=== PATIENT | female | born 1960 | race Caucasian/White ===

== ENCOUNTER 2017-09-18 13:17 | Inpatient (IN) | payer MEDICAID ==
[~2017-09-18] VITALS: Ht 152.4 cm; Wt 97.7 kg
[~2017-09-18 13:17] MED LIST: ATOR10TA PO; AZIT250T PO; CLON-527 PO; CLON-529 PO; ESCI20TA29 PO; ESOM40CA30 PO; LAMO100T2 PO; LISI-604 PO; PALI6TAB3 PO; ROPI1TAB17 PO
[2017-09-18] MEDS ORDERED: dexamethasone sod phosphate 10mg/ml inj IV STA (13:28)
[2017-09-18] MEDS ORDERED: albuterol 2.5 MG/3 ML nebule CONTNEB PRN (13:30)
[2017-09-18 13:49] LABS: BASOPHILS # (AUTO) 0.1 X10'3 (0-0.2); BASOPHILS % (AUTO) 0.8 % (0-1); EOSINOPHILS # (AUTO) 0.2 X10'3 (0-0.9); EOSINOPHILS % (AUTO) 2.2 % (0-6); HEMATOCRIT 44.7 % (35.0-45.0); LYMPHOCYTES # (AUTO) 1.3 X10'3 (1.1-4.8); LYMPHOCYTES % (AUTO) 16.2 % (21-51); MEAN CORPUSCULAR HEMOGLOBIN 31.4 PG (27.0-31.0); MEAN CORPUSCULAR HGB CONC 33.5 % (33.0-36.5); MEAN CORPUSCULAR VOLUME 93.9 FL (78-98); MEAN PLATELET VOLUME 8.9 FL (7.4-10.4); MONOCYTES # (AUTO) 0.4 X10'3 (0-0.9); MONOCYTES % (AUTO) 4.8 % (2-12); NEUTROPHILS # (AUTO) 5.9 X10'3 (1.8-7.7); PLATELET COUNT 162 X10'3 (140-440); RED BLOOD COUNT 4.76 X10'6 (4.20-5.60); RED CELL DISTRIBUTION WIDTH 15.3 % (11.5-14.5); WHITE BLOOD COUNT 7.7 X10'3 (4.5-11.0)
[2017-09-18 14:12] LABS: ALANINE AMINOTRANSFERASE 68 U/L (12-78); ALBUMIN 3.1 G/DL (3.4-5.0); ALBUMIN/GLOBULIN RATIO 0.8 (1.1-1.5); ALKALINE PHOSPHATASE 125 IU/L (46-116); ANION GAP 10 (8-16); ASPARTATE AMINO TRANSFERASE 33 U/L (10-37); BILIRUBIN,TOTAL 0.3 MG/DL (0.1-1.0); BLOOD UREA NITROGEN 9 MG/DL (7-18); BUN/CREATININE RATIO 14.3 (6.6-38.0); CALCIUM 8.9 MG/DL (8.5-10.1); CHLORIDE 101 MMOL/L (99-107); CREATININE 0.63 MG/DL (0.40-0.90); GLUCOSE 179 MG/DL (70-104); POTASSIUM 4.4 MMOL/L (3.5-5.1); SODIUM 140 MMOL/L (135-145); TOTAL CARBON DIOXIDE 29.1 MMOL/L (24-32); TOTAL PROTEIN 6.8 G/DL (6.4-8.2); eGFR > 90 ML/MIN
[2017-09-18 14:25] LABS: ABG BASE EXCESS 4.5 mmol/L (-2.0-3.0); ABG HCO3 31.6 mmol/L (22.0-26.0); ABG OXYGEN SATURATION 92.7 % (95-98); ABG PCO2 (T) 56.5 mmHg (32.0-45.0); ABG PH (T) 7.365 (7.350-7.450); ABG PO2 (T) 65.5 mmHg (83-108); ALLEN'S TEST Positive; FCOHb 4.7 % (0.5-1.5); FMetHb 0.3 % (0.3-1.12); FO2Hb 88.1 % (94-100); RESPIRATORY RATE (OBSERVED) 16 b/min; TOTAL HEMOGLOBIN 15.4 G/dl (12.0-16.0)
[2017-09-18] MEDS ORDERED: ALBU18HF2 INH (15:16)
[2017-09-18] MEDS ORDERED: ALBU2.5V12 NEB (15:16)
[2017-09-18] MEDS ORDERED: doxycycline hyclate 100mg tablet.DR PO ONE (15:40)
[2017-09-18] MEDS ORDERED: doxycycline hyclate 100mg tablet.DR PO SCH (15:40)
[2017-09-18] MEDS: nicotine 7mg patch - 24hr TD SCH (16:10)
[2017-09-18] MEDS ORDERED: clonazePAM 1mg tablet PO PRN (16:15)
[2017-09-18] MEDS ORDERED: ondansetron/PF 4mg/2ml inj IV PRN (16:20)
[2017-09-18] MEDS ORDERED: mag hydrox/Alum hydrox/simeth 30ml oral suspension PO PRN (16:20)
[2017-09-18] MEDS ORDERED: LORazepam 2 mg/ml vial IV PRN (16:20)
[2017-09-18] MEDS ORDERED: HYDROcodone/acetaminophen 10/325mg tab PO PRN (16:20)
[2017-09-18] MEDS ORDERED: dextrose 50%-water 50ml dispensing syringe IV PRN ×3 (16:20)
[2017-09-18] MEDS ORDERED: magnesium 2GM in 50ml NS 50 ML IV PRN (16:20)
[2017-09-18] MEDS ORDERED: MESSAGE TO PHARMACY PO ONE (16:20)
[2017-09-18] MEDS ORDERED: magnesium 4gm in 100ml NS 100 ML IV PRN (16:20)
[2017-09-18] MEDS ORDERED: thiamine 100mg/ml 2ml inj. IV ONE (16:20)
[2017-09-18] MEDS ORDERED: magnesium Cl slow-release 64mg tablet PO PRN (16:20)
[2017-09-18] MEDS ORDERED: magnesium hydroxide 30ml (MOM) UD suspension PO PRN (16:20)
[2017-09-18] MEDS ORDERED: dextrose ORAL solution 15 GM/59 ML bottle PO PRN ×2 (16:20)
[2017-09-18] MEDS ORDERED: potassium Cl 20 mEq SR tablet PO PRN ×2 (16:20)
[2017-09-18] MEDS ORDERED: LORazepam 1 MG tablet PO PRN (16:20)
[2017-09-18] MEDS ORDERED: haloperidol 5mg tablet PO PRN (16:20)
[2017-09-18] MEDS ORDERED: glucagon, human recombinant 1mg kit SUBCUT PRN (16:20)
[2017-09-18] MEDS ORDERED: haloperidol lactate 5mg/ml inj IM PRN (16:20)
[2017-09-18] MEDS ORDERED: potassium Cl 40MEQ/NS 500ml 500 ML IV PRN ×2 (16:20)
[2017-09-18] MEDS ORDERED: ipratropium/albuterol 3ml nebule NEB PRN (16:20)
[2017-09-18] MEDS ORDERED: acetaminophen 325mg tablet PO PRN ×2 (16:20)
[2017-09-18] MEDS ORDERED: HYDROcodone/acetaminophen 5mg/325mg tablet PO PRN (16:20)
[2017-09-18] MEDS ORDERED: HYDROmorphone 1 mg/ml syringe IV PRN ×2 (16:20)
[2017-09-18 16:58] LABS: HEMOGLOBIN A1C 6.9 % (4.5-6.2)
[2017-09-18] MEDS: normal saline 1000ml 1,000 ML IV SCH (17:05)
[2017-09-18] MEDS: cloNIDine 0.1 mg tablet PO SCH (19:32)
[2017-09-18] MEDS: methylPREDNISolone sod succ 125mg/2ml vial IV SCH (19:32)
[2017-09-18] MEDS: heparin, porcine 5000 units/ml vial SQ SCH (19:39)
[2017-09-18] MEDS: doxycycline inj 100 MG in normal saline 100ml IV soln 100 ML IV SCH (20:13)
[2017-09-18] MEDS: ipratropium/albuterol 3ml nebule NEB SCH ×2 (20:49→23:16)
[2017-09-18] MEDS: insulin glargine (Lantus) pen - multi-dose SQ SCH (21:00)
[2017-09-18 21:30] VITALS: BP 133/56
[2017-09-18] MEDS: lamoTRIgine 100mg tablet PO SCH (23:07)
[2017-09-18] MEDS: insulin Lispro (HumaLOG) vial - multi-dose SQ SCH (23:33)
[2017-09-18] MEDS: PALIPERIDONE 3 MG TAB.ER.24 PO SCH (23:37)
[2017-09-19] VITALS: BP 138/72
[2017-09-19] MEDS: zolpidem 5mg tablet PO PRN ×2 (00:19→22:51)
[2017-09-19] MEDS: ipratropium/albuterol 3ml nebule NEB SCH ×6 (03:05→23:42)
[2017-09-19 05:41] LABS: BASOPHILS % (AUTO) 0 % (0-1); EOSINOPHILS # (AUTO) 0.1 X10'3 (0-0.9); EOSINOPHILS % (AUTO) 1.3 % (0-6); HEMOGLOBIN 14.1 g/dl (12.0-16.0); LYMPHOCYTES % (AUTO) 13.1 % (21-51); MEAN CORPUSCULAR HEMOGLOBIN 31.6 PG (27.0-31.0); MEAN CORPUSCULAR HGB CONC 33.6 % (33.0-36.5); MEAN CORPUSCULAR VOLUME 93.9 FL (78-98); MEAN PLATELET VOLUME 9.7 FL (7.4-10.4); MONOCYTES # (AUTO) 0.2 X10'3 (0-0.9); MONOCYTES % (AUTO) 3.3 % (2-12); NEUTROPHILS # (AUTO) 6.1 X10'3 (1.8-7.7); NEUTROPHILS % (AUTO) 82.3 % (42-75); PLATELET COUNT 159 X10'3 (140-440); RED BLOOD COUNT 4.48 X10'6 (4.20-5.60); RED CELL DISTRIBUTION WIDTH 15.1 % (11.5-14.5); WHITE BLOOD COUNT 7.4 X10'3 (4.5-11.0)
[2017-09-19 05:46] LABS: ALBUMIN 2.9 G/DL (3.4-5.0); ANION GAP 7 (8-16); BLOOD UREA NITROGEN 15 MG/DL (7-18); BUN/CREATININE RATIO 18.5 (6.6-38.0); CALCIUM 9.5 MG/DL (8.5-10.1); CHLORIDE 102 MMOL/L (99-107); CREATININE 0.81 MG/DL (0.40-0.90); GLUCOSE 288 MG/DL (70-104); POTASSIUM 4.9 MMOL/L (3.5-5.1); SODIUM 139 MMOL/L (135-145); TOTAL CARBON DIOXIDE 30.3 MMOL/L (24-32); eGFR 73 ML/MIN
[2017-09-19 07:00] VITALS: BP 150/88
[2017-09-19] MEDS: K and/or MAG REPLACEMENT MC SCH (08:00)
[2017-09-19] MEDS: nicotine 7mg patch - 24hr TD SCH (08:00)
[2017-09-19] MEDS: normal saline 1000ml 1,000 ML IV SCH (08:10)
[2017-09-19] MEDS: doxycycline inj 100 MG in normal saline 100ml IV soln 100 ML IV SCH ×2 (08:12→22:23)
[2017-09-19] MEDS: methylPREDNISolone sod succ 125mg/2ml vial IV SCH ×2 (08:14→22:23)
[2017-09-19] MEDS: citalopram 20mg tablet PO SCH (08:14)
[2017-09-19] MEDS: lisinopril 5mg tablet PO SCH (08:14)
[2017-09-19] MEDS: cloNIDine 0.1 mg tablet PO SCH ×2 (08:14→22:30)
[2017-09-19] MEDS: pantoprazole 40mg Tablet.DR PO SCH (08:14)
[2017-09-19] MEDS: lamoTRIgine 100mg tablet PO SCH ×3 (08:14→22:24)
[2017-09-19] MEDS: heparin, porcine 5000 units/ml vial SQ SCH ×2 (08:15→22:24)
[2017-09-19] MEDS: insulin Lispro (HumaLOG) vial - multi-dose SQ SCH ×4 (08:46→19:55)
[2017-09-19] MEDS ORDERED: ROPI1TAB4 PO (10:10)
[2017-09-19] MEDS: folic acid inj. 2 MG, thiamine inj. 100 MG, MVI, adult No.4 with vit. K 10 ML in dextro... IV SCH ×4 (13:51)
[2017-09-19 16:57] VITALS: BP 106/65
[2017-09-19 19:00] VITALS: BP 118/61
[2017-09-19] MEDS: PALIPERIDONE 3 MG TAB.ER.24 PO SCH (22:25)
[2017-09-19] MEDS: insulin glargine (Lantus) pen - multi-dose SQ SCH (22:50)
[2017-09-20] VITALS: BP 112/62
[2017-09-20] MEDS: ipratropium/albuterol 3ml nebule NEB SCH ×4 (03:24→15:00)
[2017-09-20 05:46] LABS: BASOPHILS % (AUTO) 0 % (0-1); EOSINOPHILS # (AUTO) 0.1 X10'3 (0-0.9); EOSINOPHILS % (AUTO) 1.3 % (0-6); HEMATOCRIT 40.7 % (35.0-45.0); HEMOGLOBIN 13.9 g/dl (12.0-16.0); LYMPHOCYTES # (AUTO) 0.8 X10'3 (1.1-4.8); MEAN CORPUSCULAR HEMOGLOBIN 31.7 PG (27.0-31.0); MEAN CORPUSCULAR HGB CONC 34.1 % (33.0-36.5); MEAN CORPUSCULAR VOLUME 93.1 FL (78-98); MEAN PLATELET VOLUME 9.7 FL (7.4-10.4); MONOCYTES # (AUTO) 0.3 X10'3 (0-0.9); MONOCYTES % (AUTO) 3.1 % (2-12); NEUTROPHILS # (AUTO) 9.5 X10'3 (1.8-7.7); NEUTROPHILS % (AUTO) 88.6 % (42-75); PLATELET COUNT 163 X10'3 (140-440); RED BLOOD COUNT 4.37 X10'6 (4.20-5.60); WHITE BLOOD COUNT 10.7 X10'3 (4.5-11.0)
[2017-09-20 05:54] LABS: ALBUMIN 2.8 G/DL (3.4-5.0); ANION GAP 7 (8-16); BLOOD UREA NITROGEN 18 MG/DL (7-18); BUN/CREATININE RATIO 24.3 (6.6-38.0); CALCIUM 9.1 MG/DL (8.5-10.1); CHLORIDE 102 MMOL/L (99-107); CREATININE 0.74 MG/DL (0.40-0.90); GLUCOSE 278 MG/DL (70-104); MAGNESIUM 2.2 MG/DL (1.5-2.4); POTASSIUM 5.1 MMOL/L (3.5-5.1); SODIUM 139 MMOL/L (135-145); TOTAL CARBON DIOXIDE 30.3 MMOL/L (24-32); eGFR 81 ML/MIN
[2017-09-20 07:00] VITALS: BP 104/52
[2017-09-20] MEDS: pantoprazole 40mg Tablet.DR PO SCH (07:30)
[2017-09-20] MEDS: cloNIDine 0.1 mg tablet PO SCH (08:00)
[2017-09-20] MEDS: nicotine 7mg patch - 24hr TD SCH (08:00)
[2017-09-20] MEDS: K and/or MAG REPLACEMENT MC SCH (08:00)
[2017-09-20] MEDS: normal saline 1000ml 1,000 ML IV SCH (08:16)
[2017-09-20] MEDS: folic acid inj. 2 MG, thiamine inj. 100 MG, MVI, adult No.4 with vit. K 10 ML in dextro... IV SCH ×4 (09:04)
[2017-09-20] MEDS: lisinopril 5mg tablet PO SCH (09:05)
[2017-09-20] MEDS: lamoTRIgine 100mg tablet PO SCH ×2 (09:05→14:39)
[2017-09-20] MEDS: doxycycline inj 100 MG in normal saline 100ml IV soln 100 ML IV SCH (09:05)
[2017-09-20] MEDS: citalopram 20mg tablet PO SCH (09:06)
[2017-09-20] MEDS: methylPREDNISolone sod succ 125mg/2ml vial IV SCH (09:07)
[2017-09-20] MEDS: heparin, porcine 5000 units/ml vial SQ SCH (09:10)
[2017-09-20] MEDS ORDERED: diphenhydrAMINE 25mg capsule PO ONE (09:30)
[2017-09-20] MEDS: insulin Lispro (HumaLOG) vial - multi-dose SQ SCH ×2 (09:34→14:45)
[2017-09-20] MEDS ORDERED: PRED10TA23 PO (10:08)
[2017-09-20] MEDS ORDERED: DOXY100C2 PO (10:08)
[2017-09-20 11:00] VITALS: BP 137/72
== END 2017-09-20 17:08 | disposition home or self-care (01) | DRG 140 ==
LOC: ER 13:18 → ED HOLD 16:16 → SUR 3N 21:15
PROVIDERS: ADMIT Family Medicine; ATTEND Internal Medicine
DX: J44.0 Chronic obstructive pulmonary disease with (acute) lower respiratory infection (principal); J96.21 Acute and chronic respiratory failure with hypoxia; Z99.81 Dependence on supplemental oxygen; F20.9 Schizophrenia, unspecified; I10 Essential (primary) hypertension; E11.9 Type 2 diabetes mellitus without complications; E78.00 Pure hypercholesterolemia, unspecified; F10.10 Alcohol abuse, uncomplicated; F17.210 Nicotine dependence, cigarettes, uncomplicated; G40.909 Epilepsy, unspecified, not intractable, without status epilepticus; G89.29 Other chronic pain; J20.9 Acute bronchitis, unspecified; J44.1 Chronic obstructive pulmonary disease with (acute) exacerbation; J30.2 Other seasonal allergic rhinitis; M54.9 Dorsalgia, unspecified; Z90.710 Acquired absence of both cervix and uterus; Z68.41 Body mass index [BMI] 40.0-44.9, adult; Z88.1 Allergy status to other antibiotic agents; Z88.5 Allergy status to narcotic agent; Z88.8 Allergy status to other drugs, medicaments and biological substances; Z91.018 Allergy to other foods; Z71.6 Tobacco abuse counseling
CPT/HCPCS: 36415; 36600; 71045; 80048; 80053; 82803; 82948; 83036; 83735; 83880; 84484; 85018; 85025; 87070; 94640; 94644; 94760; 96374; 99285; 99406; J1100; J1644; J1815; J2930; J3411; J3490; J7030; J7060

== ENCOUNTER 2021-10-07 17:19 | Emergency (ER) | payer MEDICAID ==
[~2021-10-07] VITALS: Ht 154.9 cm; Wt 90.0 kg
[~2021-10-07 17:19] MED LIST changes: +ALBU18HF2 INH; +ALBU2.5V12 NEB; -ATOR10TA PO; -AZIT250T PO; -ESOM40CA30 PO; -LISI-604 PO; +LISI5TAB22 PO; -ROPI1TAB17 PO; +ROPI1TAB6 PO
[2021-10-07 17:23] VITALS: BP 126/71
== END 2021-10-07 19:59 | disposition home or self-care (01) ==
LOC: ER 17:19
DX: B34.9 Viral infection, unspecified (principal); Z20.822 Contact with and (suspected) exposure to COVID-19; E78.00 Pure hypercholesterolemia, unspecified; I10 Essential (primary) hypertension; G89.29 Other chronic pain; M54.9 Dorsalgia, unspecified; Z88.5 Allergy status to narcotic agent; Z88.8 Allergy status to other drugs, medicaments and biological substances; Z88.1 Allergy status to other antibiotic agents; Z79.899 Other long term (current) drug therapy
CPT/HCPCS: 87502; 87503; 87635; 99283; C9803

== ENCOUNTER 2022-06-06 10:12 | Day surgery (SDC) | payer MEDICAID ==
[2022-06-02 16:05] LABS: BASOPHILS # (AUTO) 0.1 X10'3 (0-0.2); BASOPHILS % (AUTO) 0.9 % (0-1); EOSINOPHILS # (AUTO) 0.4 X10'3 (0-0.9); EOSINOPHILS % (AUTO) 4.9 % (0-6); LYMPHOCYTES % (AUTO) 33.2 % (21-51); MEAN CORPUSCULAR HEMOGLOBIN 31.5 PG (27.0-31.0); MEAN CORPUSCULAR HGB CONC 34.3 g/dL (33.0-36.5); MEAN CORPUSCULAR VOLUME 91.9 FL (78-98); MEAN PLATELET VOLUME 8.6 FL (7.4-10.4); MONOCYTES # (AUTO) 0.7 X10'3 (0-0.9); MONOCYTES % (AUTO) 8.1 % (2-12); NEUTROPHILS # (AUTO) 4.8 X10'3 (1.8-7.7); NEUTROPHILS % (AUTO) 52.9 % (42-75); PRE OP HEMATOCRIT 50.8 % (35.0-45.0); PRE OP HEMOGLOBIN 17.4 g/dL (12.0-16.0); PRE OP PLATELET COUNT 243 X10'3 (140-440); RED BLOOD COUNT 5.53 X10'6 (4.20-5.60); RED CELL DISTRIBUTION WIDTH 13.1 % (11.5-14.5)
[2022-06-02 16:07] LABS: ALBUMIN 3.9 G/DL (3.4-5.0); ALKALINE PHOSPHATASE 126 IU/L (46-116); BLOOD UREA NITROGEN 7 MG/DL (7-18); BUN/CREATININE RATIO 9.1 (6.6-38.0); CHLORIDE 100 MMOL/L (99-107); CREATININE 0.77 MG/DL (0.40-0.90); PRE OP ALT 32 U/L (30-65); PRE OP ANION GAP 8 (8-16); PRE OP AST 24 U/L (10-37); PRE OP BILIRUB, TOTAL 0.4 MG/DL (0.0-1.0); PRE OP GLUCOSE 128 MG/DL (70-104); PRE OP POTASSIUM 4.2 MMOL/L (3.4-5.1); PRE OP SODIUM 139 MMOL/L (135-145); TOTAL PROTEIN 7.8 G/DL (6.4-8.2); eGFR 76 ML/MIN
[~2022-06-06] VITALS: Ht 154.9 cm; Wt 81.4 kg
[2022-06-06] VITALS (11 sets, daily range): BP systolic 123–180; BP diastolic 69–103
[~2022-06-06 10:12] MED LIST changes: +AMLO5TAB PO; +BUDE10.22 INH; -CLON-529 PO; +CLON0.3T36 PO; +DOCUMENT DATE & TIME OF BETA-BLOCKER PO ONE; -ESCI20TA29 PO; +FAMO20TA8 PO; +HYDR25TA5 PO; +INDOCYANINE GREEN 25 MG/10 ML VIAL IV ONE; -LISI5TAB22 PO; +LORA10TA7 PO; +METF-438 PO; +ONDA4TAB12 SL; +PROP10TA10 PO; +TES100C PO; +albuterol 2.5 MG/3 ML nebule NEB ONE; +ceFAZolin inj. 2,000 MG in dextrose 5%-water 100 ML IV ONE; +famotidine 20mg tablet PO ONE; +ringers solution, lacted 1,000 ML IV SCH
[2022-06-06] MEDS ORDERED: MIDAZolam 5mg/ml 2ml vial IV PRN (12:50)
--- NOTE | 2022-06-06 13:30 | NUR ---
12:[address] MCDUFFIE IN TO SEE PT, ORDERS GIVEN TO COVERING RN TO GIVE 3 MG VERSED, DR SOOT WAS CALLED AND STATES IS OKAY TO GIVE VERSED. 3 MG GIVEN, PT STATES SHE IS BECOMING RELAXED, PT PLACED ON 02 MONITOR, AWAKENS EASILY, 02 SATS DOWN TO 89-90% PLACED ON 2 LITERS NC, SAO2 UP TO 99%. Addendum: 06/06/22 at 1349 by Karla Garcia RN Amended: Links added.
[2022-06-06] MEDS ORDERED: ondansetron/PF 4mg/2ml inj IV PRN (13:35)
[2022-06-06] MEDS ORDERED: morphine 4 MG/ML inj SYRINge IV PRN (13:35)
[2022-06-06] MEDS ORDERED: morphine 2 MG/ML inj. syringe IV PRN (13:35)
[2022-06-06] MEDS ORDERED: hydrALAZINE 20mg/ml inj. IV PRN (13:35)
[2022-06-06] MEDS ORDERED: ringers solution, lacted 1,000 ML IV SCH (13:35)
[2022-06-06] MEDS ORDERED: labetalol 20mg/4ml (5mg/ml) syringe IV PRN (13:35)
[2022-06-06] MEDS ORDERED: fentaNYL/PF 50MCG/1 ML 2ML syringe IV PRN (13:35)
[2022-06-06] MEDS ORDERED: BUPIVAcaine 0.5% inj/PF 30 ML ONE (14:22)
[2022-06-06] MEDS ORDERED: LIDOcaine 1% 30ml preserv. free vial ONE (14:24)
[2022-06-06] MEDS ORDERED: fentaNYL/PF 50MCG/1 ML 2ML syringe ONE (14:31)
[2022-06-06] MEDS ORDERED: glycopyrrolate 0.2mg/ml inj ONE (14:32)
[2022-06-06] MEDS ORDERED: midazolam 1 mg/ML 2ml injection ONE (14:32)
[2022-06-06] MEDS ORDERED: ondansetron/PF 4mg/2ml inj ONE (14:32)
[2022-06-06] MEDS ORDERED: propofol inj 20 ML IV ONE (14:32)
[2022-06-06] MEDS ORDERED: dexamethasone sod phosphate 4mg/ml inj. ONE (14:32)
[2022-06-06] MEDS ORDERED: rocuronium 10mg/ml inj IV ONE (14:32)
[2022-06-06] MEDS ORDERED: sevoflurane 250ml liquid IH ONE (14:37)
[2022-06-06] MEDS ORDERED: neostigmine in sterile water inj 5 MG/5 ML syringe IJ ONE (14:37)
[2022-06-06] MEDS ORDERED: neostigmine methylsulfate 1 MG/ML 10ml vial ONE (14:37)
[2022-06-06] MEDS ORDERED: LIDOcaine 1%/PF 5ML 10 MG/ML VIAL ONE (14:48)
[2022-06-06] MEDS ORDERED: BUPIVAcaine 0.5% inj/PF 30 ml vial IJ ONE (15:15)
[2022-06-06] MEDS ORDERED: LIDOcaine 1% 30ml preserv. free vial IJ ONE (15:16)
[2022-06-06] MEDS ORDERED: hydrALAZINE 20mg/ml inj. IV ONE (15:22)
[2022-06-06] MEDS ORDERED: traMADol 50MG tablet PO PRN (16:05)
[2022-06-06] MEDS: fentaNYL/PF 50MCG/1 ML 2ML syringe IV PRN ×2 (16:15→17:13)
--- NOTE | 2022-06-06 16:15 | NUR ---
Received from OR via [facility], accompanied by Anesthesiologist DR MCDUFFIE and report given by Anesthesiolgist. PT IS GROGGY BUT WAKES TO VERBAL STIMULI AND FOLLOWS COMMANDS. PT PLACED ON BEDSIDE MONITOR. PT IS HYPERTENSIVE AND ORDERS RECEIVED TO TREAT. PT RECEIVING 4L O2 TO NC AND TOLERATING WELL. O2 SAT >90%. PT HAS 20G PIV TO LEFT LOW ARM WITH LR INFUSING ORDERED. PT HAS BAND-AID X4 TO ABD THAT ARE ALL CDI. PT DENIES PAIN AT THIS TIME. WILL CONTINUE TO ASSESS
--- NOTE | 2022-06-06 17:50 | NUR ---
PT TAKEN OFF MONITOR TO USE BEDSIDE COMMODE AND TO GET DRESSED TO WAIT FOR PT'S RIDE HOME. WILL CONTINUE TO MONITOR O2 SATS
--- NOTE | 2022-06-06 18:58 | NUR ---
ABLE TO SAFELY AMBULATE AND TRANSFER SELF. IV TAKEN OUT WITHOUT ANY COMPLICATIONS. ALL DISCHARGE INSTRUCTIONS COVERED WITH PATIENT AND ALL QUESTIONS ANSWERED. PATIENT TAKEN OUT VIA WHEELCHAIR TO PERSONAL VEHICLE WHERE DAUGHTER IN-LAW DROVE PATIENT HOME.
== END 2022-06-06 18:46 | disposition home or self-care (01) ==
LOC: PAS 10:12
PROVIDERS: ATTEND Surgery
DX: K80.10 Calculus of gallbladder with chronic cholecystitis without obstruction (principal); G25.81 Restless legs syndrome; G40.909 Epilepsy, unspecified, not intractable, without status epilepticus; E11.9 Type 2 diabetes mellitus without complications; J44.9 Chronic obstructive pulmonary disease, unspecified; I10 Essential (primary) hypertension; F31.9 Bipolar disorder, unspecified; G47.30 Sleep apnea, unspecified; F20.9 Schizophrenia, unspecified; K21.9 Gastro-esophageal reflux disease without esophagitis; F17.210 Nicotine dependence, cigarettes, uncomplicated; F41.9 Anxiety disorder, unspecified; E66.9 Obesity, unspecified; Z68.33 Body mass index [BMI] 33.0-33.9, adult; Z79.899 Other long term (current) drug therapy; Z90.710 Acquired absence of both cervix and uterus; Z88.5 Allergy status to narcotic agent; Z88.8 Allergy status to other drugs, medicaments and biological substances; Z91.018 Allergy to other foods; Z87.442 Personal history of urinary calculi; Z98.890 Other specified postprocedural states; Z82.49 Family history of ischemic heart disease and other diseases of the circulatory system; Z83.3 Family history of diabetes mellitus
CPT/HCPCS: 36415; 47563; 80053; 82948; 85025; 93005; 94640; 94760; J0360; J0690; J1100; J2250; J2405; J2704; J3010; J3490; J7030; J7060; J7120; S0020; S2900; Z7506; Z7508; Z7512; A4215; A4615; A4618; A7000; J2710

== ENCOUNTER 2024-01-11 06:59 | Outpatient (CLI) | payer MEDICAID ==
[~2024-01-11] VITALS: Ht 154.9 cm; Wt 83.5 kg
[~2024-01-11 06:59] MED LIST changes: +BENZ-111 PO; -DOCUMENT DATE & TIME OF BETA-BLOCKER PO ONE; -INDOCYANINE GREEN 25 MG/10 ML VIAL IV ONE; +ONDA-243 SL; -ONDA4TAB12 SL; +ROPI1TAB47 PO; -ROPI1TAB6 PO; -TES100C PO; -albuterol 2.5 MG/3 ML nebule NEB ONE; -ceFAZolin inj. 2,000 MG in dextrose 5%-water 100 ML IV ONE; -famotidine 20mg tablet PO ONE; -ringers solution, lacted 1,000 ML IV SCH
[2024-01-11] MEDS: albuterol 2.5 MG/3 ML nebule NEB ONE (07:47)
[2024-01-11 07:49] VITALS: PULSE 66; RESP 18; O2SAT 96
[2024-01-11 08:02] VITALS: PULSE 65; RESP 16
== END 2024-01-11 23:59 | disposition home or self-care (01) ==
LOC: RT 06:59
PROVIDERS: ATTEND Student in an Organized Health Care Education/Training Program
DX: R94.2 Abnormal results of pulmonary function studies (principal); J44.9 Chronic obstructive pulmonary disease, unspecified
CPT/HCPCS: 94060; 94760

== ENCOUNTER 2024-07-29 08:23 | Outpatient (CLI) | payer MEDICAID | END 2024-07-29 23:59 | disposition home or self-care (01) | LOC: MRI02 08:23 | PROVIDERS: ATTEND Student in an Organized Health Care Education/Training Program | DX: G43.909 Migraine, unspecified, not intractable, without status migrainosus (principal) | CPT/HCPCS: 70551 ==